=== PATIENT | male | born 1965 | race Caucasian/White ===

== ENCOUNTER 2016-08-30 03:56 | Emergency (ER) | payer BC ==
[2016-08-30 04:03] VITALS: BP 151/99
--- NOTE | 2016-08-30 04:32 | EDM.PDOC ---
ED HPI Trauma - General Chief Complaint: Lower Extremity Injury/Pain Stated Complaint: left toe injury Time Seen by Provider: 08/30/16 04:16 Source: Reports: Patient History Limitations: Reports: No limitations - History of Present Illness INITIAL COMMENTS - FREE TEXT/NARRATIVE: Left 1st toe is thaddeus swollen and purple. pateint states he droped a heavy tool on it this morning. Occurred When: just prior to arrival, this morning Occurred Where: work Method of Injury: direct blow Severity: moderate Pain/Injury Location: Reports: lower extremity, left Consciousness: Reports: no loss of consciousness Allergies/ADRs: Allergies No Known Allergies Allergy (Verified 08/30/16 03:57) Home Medications: Ambulatory Orders Aspirin 325 mg PO DAILY 08/30/16 [Confirmed 08/30/16] Metoprolol Tartrate [Metoprolol Tartrate] 50 mg PO DAILY 08/30/16 [Confirmed ] atorvaSTATin Calcium [Atorvastatin Calcium] 10 mg PO DAILY 08/30/16 [Confirmed 08/30/16] Past Medical History HEENT History: Reports: Other (see below) Other HEENT History: deaf right ear Cardiovascular History: Reports: High cholesterol, Hypertension, [place], PTCA - Past Surgical History Cardiovascular Surgical History: Reports: Coronary artery stent GI Surgical History: Reports: Hernia repair/other Musculoskeletal Surgical History: Reports: Other (see below) Other Musculoskeletal Surgeries/Procedures:: right arm surgery/injury Social & Family History - Tobacco Use Smoking Status *Q: Current Every Day Smoker Years of Tobacco use: 40 Packs/Tins Daily: 3 Review of Systems - Review of Systems Review Of Systems: See Below Constitutional: Reports: no symptoms Eyes: Reports: no symptoms Ears: Reports: no symptoms Nose: Reports: no symptoms Mouth/Throat: Reports: no symptoms Respiratory: Reports: No Symptoms Cardiovascular: Reports: no symptoms GI/Abdominal: Reports: No symptoms Genitourinary: Reports: no symptoms Musculoskeletal: Reports: foot pain Skin: Reports: change in color, change in hair/nails Psychiatric: Reports: no symptoms Trauma Exam - Physical Exam Exam: See Below Exam Limited By: No limitations General Appearance: Reports: alert, WD/WN Head: Reports: atraumatic, normocephalic Ears: Reports: normal external exam Nose: Reports: normal inspection Throat/Mouth: Reports: Normal inspection Neck: Reports: non-tender Respiratory Exam: Reports: no respiratory distress Cardiovascular: Reports: normal peripheral pulses GI/Abdominal: Reports: normal bowel sounds Extremities: Reports: other Skin: Reports: Other - Mukesh Coma Score Best Eye Response ([place]): (4) open spontaneously Best Verbal Response ([place]): (5) oriented Best Motor Response ([place]): (6) obeys commands Course - Vital Signs Last Recorded V/S: Last Vital Signs Temp 99.7 F 08/30/16 03:59 Pulse 76 08/30/16 03:59 Resp 20 08/30/16 03:59 BP 151/99 H 08/30/16 03:59 Pulse Ox 96 08/30/16 03:59 - Orders/Labs/Meds Orders: Active Orders 24 hr Category Date Time Status Toes Great Toe Lt TA [CR] Stat Exams 08/30/16 04:10 Ordered Departure - Departure Time of Disposition: 04:32 Disposition: Home, Self-Care 01 Condition: good Clinical Impression: Fractured toe Forms: ED Department Discharge Additional Instructions: Keep toe elevated, and use ice for swelling. No work for 3 days. - My Orders Last 24 Hours: My Active Orders 08/30/16 04:10 Toes Great Toe Lt TA [CR] Stat - Assessment/Plan Last 24 Hours: My Active Orders 08/30/16 04:10 Toes Great Toe Lt TA [CR] Stat
[2016-08-30] MEDS ORDERED: Take Home: traMADol 50 MG, 4 Tab Pack PO ONE (04:39)
[2016-08-30] MEDS ORDERED: traMADol 50 MG Tab PO ONE (10:00)
== END 2016-08-30 04:49 | disposition home or self-care (01) ==
LOC: CC.ED 03:56
DX: S92.412A Displaced fracture of proximal phalanx of left great toe, initial encounter for closed fracture (principal); E78.00 Pure hypercholesterolemia, unspecified; I10 Essential (primary) hypertension; I25.2 Old myocardial infarction; F17.210 Nicotine dependence, cigarettes, uncomplicated; W20.8XXA Other cause of strike by thrown, projected or falling object, initial encounter; Y99.0 Civilian activity done for income or pay
CPT/HCPCS: 73660; 99283; A9270

== ENCOUNTER 2017-09-16 19:07 | Emergency (ER) | payer BC, OTHER ==
[2017-09-16] MEDS ORDERED: traMADol 50 MG Tab PO ONE (19:08)
[2017-09-16 19:10] VITALS: BP 137/92
[2017-09-16] MEDS: Lidocaine 1% 20 ML MDV INJECT ONE (19:29)
[2017-09-16] MEDS: Diphtheria/Tetanus Toxoids,Adult (Td) 0.5 ML Syringe IM ONE (19:55)
--- NOTE | 2017-09-16 20:02 | EDM.PDOC ---
ED HPI GENERAL MEDICAL PROBLEM - General Chief Complaint: Head Injury Stated Complaint: ear laceration Time Seen by Provider: 09/16/17 19:10 Source of Information: Reports: Patient History Limitations: Reports: No Limitations - History of Present Illness INITIAL COMMENTS - FREE TEXT/NARRATIVE: PT was at work at [employer] and he turned his head and hit his right ear on the end of a metal pipe. It is bleeding and he did try to apply pressure but it continued to bleed so came in to be evaluated. He has a 3.5 cm laceration that is irregular and gapping to the almaraz of the right ear. It does not go through to the back of the ear. some cartilage is exposed. no other injuries noted. Onset: Today Onset Date: 09/16/17 Onset Time: 17:00 Location: Reports: Other (right ear) Quality: Reports: Throbbing Associated Symptoms: Reports: No Other Symptoms - Related Data Allergies Allergy/AdvReac Type Severity Reaction Status Date / Time No Known Allergies Allergy Verified 09/16/17 19:10 Home Meds: Home Meds Aspirin 325 mg PO DAILY 08/30/16 [History] Metoprolol Tartrate 50 mg PO DAILY 08/30/16 [History] atorvaSTATin Calcium [Atorvastatin Calcium] 10 mg PO DAILY 08/30/16 [History] Past Medical History HEENT History: Reports: Other (See Below) Other HEENT History: deaf right ear Cardiovascular History: Reports: High Cholesterol, Hypertension, [place], PTCA - Past Surgical History Cardiovascular Surgical History: Reports: Coronary Artery Stent GI Surgical History: Reports: Hernia Repair/Other Musculoskeletal Surgical History: Reports: Other (See Below) Social & Family History - Tobacco Use Smoking Status *Q: Current Every Day Smoker Years of Tobacco use: 30 Packs/Tins Daily: 3 - Recreational Drug Use Recreational Drug Use: No ED ROS GENERAL - Review of Systems Review Of Systems: See Below Constitutional: Reports: No Symptoms HEENT: Reports: Ear Pain (right internal pinna has a a3.5 cm laceration noted that is irregular and gapping in some areas. some bleeding noted that stops easily with pressure.) Respiratory: Reports: No Symptoms Cardiovascular: Reports: No Symptoms GI/Abdominal: Reports: No Symptoms Skin: Reports: Wound (right ear) ED EXAM, HEAD INJURY - Physical Exam Exam: See Below Exam Limited By: No Limitations General Appearance: Alert, Moderate Distress Head: Normocephalic Ears: Normal Canal, Other (in the pinna of the right ear he does have a 3.5 cm irregular laceration that is bleeding. No other injuries noted.) Throat/Mouth: Normal Inspection, Normal Oropharynx Neck: Non-Tender, Full Range of Motion Respiratory: Lungs Clear Cardiovascular: Regular Rate, Rhythm, No Edema ED LACERATION/WOUND & YURIY PROC - Laceration/Wound Repair Right Middle Ear Lac/wound length in cm: 3.5 Appearance: Irregular, Clean Distal NVT: Neuro & Vascular Intact Anesthetic Type: Local Local Anesthesia - Lidocaine (Xylocaine): 1% Plain Local Anesthetic Volume: 2cc Skin Prep: Saline Closed with: Sutures Suture Size: other (5-0) # of Sutures: 10 Suture Type: Nylon, Interrupted, Simple Tetanus Status Addressed: Yes Complications: No Course - Vital Signs Last Recorded V/S: Last Vital Signs Temp 97.8 F 09/16/17 19:08 Pulse 90 09/16/17 19:08 Resp 16 09/16/17 19:08 BP 137/92 H 09/16/17 19:08 Pulse Ox 96 09/16/17 19:08 - Orders/Labs/Meds Orders: Active Orders 24 hr Category Date Time Status Vaccines to be Administered [RC] PER UNIT ROUTINE Care 09/16/17 19:24 Active Meds: Medications Discontinued Medications Generic Name Dose Route Start Last Admin Trade Name Hector PRN Reason Stop Dose Admin Lidocaine HCl 20 ml 09/16/17 19:16 09/16/17 19:29 Xylocaine 1% INJECT 09/16/17 19:17 20 ml ONETIME ONE Administration Tetanus/Diphtheria Toxoids 0.5 ml 09/16/17 19:22 09/16/17 19:55 Tenivac IM 09/16/17 19:23 0.5 ml .ONCE ONE Administration Tramadol HCl 2 packet 09/16/17 20:02 09/16/17 20:07 Take Home: Tramadol 50 Mg, 4 Tab Pack PO 09/16/17 20:03 2 packet ONETIME ONE Administration Departure - Departure Time of Disposition: 19:59 Disposition: Home, Self-Care 01 Condition: Good Clinical Impression: Laceration of right external ear Qualifiers: Encounter type: initial encounter Qualified Code(s): S01.311A - Laceration without foreign body of right ear, initial encounter - Discharge Information Instructions: Laceration Care, Adult Forms: ED Department Discharge Additional Instructions: Tramadol 50 mg take every 6 hours as needed for discomfort. may shower and then dry area well. Need to keep covered at work to keep it clean Clean with peroxide on qtip to keep area clean. sutures out in 10 days. Call clinic for appt [phone] If any signs of infection then call or come to clinic for recheck. - Problem List & Annotations (1) Laceration of right external ear SNOMED Code(s): 470034013, 852682648, 270055456 Code(s): S01.311A - LACERATION WITHOUT FOREIGN BODY OF RIGHT EAR, INIT ENCNTR Status: Acute Priority: High Qualifiers: Encounter type: initial encounter Qualified Code(s): S01.311A - Laceration without foreign body of right ear, initial encounter - Problem List Review Problem List Initiated/Reviewed/Updated: Yes - My Orders Last 24 Hours: My Active Orders 09/16/17 19:24 Vaccines to be Administered [RC] PER UNIT ROUTINE - Assessment/Plan Last 24 Hours: My Active Orders 09/16/17 19:24 Vaccines to be Administered [RC] PER UNIT ROUTINE
[2017-09-16] MEDS: Take Home: traMADol 50 MG, 4 Tab Pack PO ONE (20:07)
== END 2017-09-16 20:12 | disposition home or self-care (01) ==
LOC: CC.ED 19:07
DX: S01.311A Laceration without foreign body of right ear, initial encounter (principal); F17.210 Nicotine dependence, cigarettes, uncomplicated; I10 Essential (primary) hypertension; E78.00 Pure hypercholesterolemia, unspecified; I25.2 Old myocardial infarction; Z79.899 Other long term (current) drug therapy; Z79.82 Long term (current) use of aspirin; W22.8XXA Striking against or struck by other objects, initial encounter
CPT/HCPCS: 12013; 90471; 90714; 99282; A9270-GY

== ENCOUNTER 2018-06-11 03:50 | Emergency (ER) | payer BC ==
[2018-06-11] MEDS: Nitroglycerin 0.4 MG Tab.SL SL PRN ×2 (04:14→04:26)
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
[2018-06-11 04:32] LABS: CHLORIDE,CL 104 mEq/L (98-106); SODIUM,NA 139 mEq/L (136-145)
[2018-06-11] MEDS ORDERED: Heparin Sodium 10,000 Units/1 ML MDV IVPUSH ONE (05:04)
[2018-06-11] MEDS ORDERED: Heparin Sodium/D5W 25,000 UNITS/500 ML BAG IV SCH (05:15)
[2018-06-11 07:18] VITALS: BP 123/79
== END 2018-06-11 07:30 ==
LOC: CC.ED 03:50
DX: I21.4 Non-ST elevation (NSTEMI) myocardial infarction (principal); I10 Essential (primary) hypertension; E78.00 Pure hypercholesterolemia, unspecified; F17.210 Nicotine dependence, cigarettes, uncomplicated; Z79.82 Long term (current) use of aspirin; Z79.899 Other long term (current) drug therapy
CPT/HCPCS: 36415; 71046; 80048; 81001; 82550; 83615; 84484; 85025; 85610; 85730; 93005; 96365; 96366; 96376; 99285; A9270-GY; J1644